=== PATIENT | male | born 2000 | race Caucasian/White ===

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

== ENCOUNTER 2020-03-10 09:19 | Emergency (ER) | payer OTHER ==
[~2020-03-10] VITALS: Ht 180.3 cm; Wt 90.9 kg
[2020-03-10 09:26] VITALS: BP 116/74; TEMP 98.9
[2020-03-10] MEDS ORDERED: NORCO 325 MG-51 TAB PO (11:03)
[2020-03-10] MEDS ORDERED: CRUTCHES MC (11:04)
[2020-03-10 11:17] VITALS: PULSE 103
== END 2020-03-10 11:17 | disposition home or self-care (01) ==
LOC: COL.ER 09:19
DX: S93.401A Sprain of unspecified ligament of right ankle, initial encounter (principal); X50.1XXA Overexertion from prolonged static or awkward postures, initial encounter; Y92.410 Unspecified street and highway as the place of occurrence of the external cause